=== PATIENT | female | born 1975 | race Caucasian/White ===

== ENCOUNTER 2021-03-31 15:38 | Emergency (ER) | payer OTHER ==
[2021-03-31 16:21] LABS: HEMOGLOBIN 13.6 gm/dl (12.3-15.3); RED BLOOD COUNT 4.59 M/UL (4.00-5.10); WHITE BLOOD COUNT 8.8 K/UL (4.5-11.0)
[2021-03-31 16:38] LABS: BUN/CREATININE RATIO 29 (0-10)
== END 2021-03-31 16:45 | disposition left against medical advice (07) ==
LOC: EROP 15:38 → ER1 15:38 → EDSTATUS 15:51 → ER1 16:45
PROVIDERS: Family Medicine
DX: U07.1 COVID-19 (principal); J42 Unspecified chronic bronchitis; F17.210 Nicotine dependence, cigarettes, uncomplicated
CPT/HCPCS: 36600; 80053; 82550; 82553; 82803; 83605; 84484; 85025; 85379; 87040; 93005; 99283; Q9967